=== PATIENT | female | born 1985 | race Caucasian/White ===

== ENCOUNTER 2017-09-06 00:41 | Emergency (ER) | payer BC, OTHER ==
[2017-09-06] MEDS ORDERED: Ondansetron 4 MG/2 ML SDV IVPUSH ONE (00:58)
[2017-09-06] MEDS ORDERED: Sodium Chloride 0.9% 1,000 ML IV ONE (00:58)
[2017-09-06] MEDS ORDERED: Ketorolac 30 MG/ML SDV IVPUSH ONE (00:58)
--- NOTE | 2017-09-06 00:59 | EDM.PDOC ---
ED HPI GENERAL MEDICAL PROBLEM - General Chief Complaint: Genitourinary Problem Stated Complaint: KIDNEY INFECTION Time Seen by Provider: 09/06/17 00:58 Source of Information: Reports: Patient - History of Present Illness INITIAL COMMENTS - FREE TEXT/NARRATIVE: HISTORY AND PHYSICAL: History of present illness: []Patient presents with dysuria and left flank pain she rates 4 out of 10 nonradiating, she has had some subjective fever no chills sweats no chest pain shortness of breath headache dizziness or palpitation no bowel symptoms Generally healthy just completing clindamycin for a dental procedure Review of systems: As per history of present illness and below otherwise all systems reviewed and negative. Past medical history: As per history of present illness and as reviewed below otherwise noncontributory. Surgical history: As per history of present illness and as reviewed below otherwise noncontributory. Social history: No reported history of drug or alcohol abuse. Family history: As per history of present illness and as reviewed below otherwise noncontributory. Physical exam: HEENT: Atraumatic, normocephalic, pupils reactive, negative for conjunctival pallor or scleral icterus, mucous membranes moist, throat clear, neck supple, nontender, trachea midline. Lungs: Clear to auscultation, breath sounds equal bilaterally, chest nontender. Heart: S1S2, regular, negative for clicks, rubs, or JVD. Abdomen: Soft, nondistended, nontender. Negative for masses or hepatosplenomegaly. Negative for costovertebral tenderness on the right she does have a little left flank pain on kidney punch. Pelvis: Stable nontender. Genitourinary: Deferred. Rectal: Deferred. Extremities: Atraumatic, negative for cords or calf pain. Neurovascular unremarkable. Neuro: Awake, alert, oriented. Cranial nerves II through XII unremarkable. Cerebellum unremarkable. Motor and sensory unremarkable throughout. Exam nonfocal. Diagnostics: []CBC CMP UA hCG CT abdomen/pelvis w contrast Therapeutics: []1 L normal saline bolus Zofran 8 mg IV Toradol 30 mg IV Levaquin 500 mg by mouth daily #10 no refill first dose provided Zofran 8 mg by mouth every 8 when necessary #30 no refill Toradol 10 mg by mouth 3 times a day when necessary #15 no refill Return if symptoms persist worsen or fever nausea vomiting chills sweats or intractable pain despite antibiotics Impression: []Dysuria Flank pain improved/resolved with Toradol Clinical left pyelonephritis Definitive disposition and diagnosis as appropriate pending reevaluation and review of above. - Related Data Allergies Allergy/AdvReac Type Severity Reaction Status Date / Time Sulfa (Sulfonamide Allergy Airway Verified 09/06/17 00:52 Antibiotics) Tightness paroxetine HCl [From Paxil] AdvReac Anxiety Verified 09/06/17 00:52 Home Meds: Home Meds . [No Known Home Meds] 09/06/17 [History] Past Medical History Psychiatric History: Reports: Anxiety, Panic Attack - Infectious Disease History Infectious Disease History: Reports: Chicken Pox - Past Surgical History GI Surgical History: Reports: Appendectomy, Cholecystectomy Social & Family History - Family History Family Medical History: Noncontributory - Tobacco Use Smoking Status *Q: Never Smoker Years of Tobacco use: 1 Used Tobacco, but Quit: Yes Month Tobacco Last Used: yes Second Hand Smoke Exposure: Yes - Caffeine Use Caffeine Use: Reports: Coffee - Alcohol Use Days Per Week of Alcohol Use: 0 - Recreational Drug Use Recreational Drug Use: No ED ROS GENERAL - Review of Systems Review Of Systems: ROS reveals no pertinent complaints other than HPI. ED EXAM, GENERAL - Physical Exam Exam: See Below Course - Vital Signs Last Recorded V/S: Last Vital Signs Temp 37.3 C 09/06/17 01:42 Pulse 100 09/06/17 02:14 Resp 17 09/06/17 02:14 BP 115/68 09/06/17 02:14 Pulse Ox 98 09/06/17 02:14 - Orders/Labs/Meds Orders: Active Orders 24 hr Category Date Time Status CULTURE BLOOD [BC] Stat Lab 09/06/17 01:20 Received CULTURE BLOOD [BC] Stat Lab 09/06/17 02:10 Received CULTURE URINE [RM] Stat Lab 09/06/17 01:05 Received Blood Culture x2 Reflex Set [OM.PC] Stat Oth 09/06/17 01:14 Ordered Labs: Laboratory Tests 09/06/17 09/06/17 09/06/17 Range/Units 01:05 01:05 01:05 WBC 14.62 H (4.0-11.0) K/uL RBC 4.50 (4.30-5.90) M/uL Hgb 13.8 (12.0-16.0) g/dL Hct 40.9 (36.0-46.0) % MCV 90.9 (80.0-98.0) fL MCH 30.7 (27.0-32.0) pg MCHC 33.7 (31.0-37.0) g/dL RDW Std Deviation 39.3 (28.0-62.0) fl RDW Coeff of Eliud 12 (11.0-15.0) % Plt Count 257 (150-400) K/uL MPV 9.60 (7.40-12.00) fL Neut % (Auto) 79.4 (48.0-80.0) % Lymph % (Auto) 11.5 L (16.0-40.0) % [place] % (Auto) 8.1 (0.0-15.0) % Eos % (Auto) 0.9 (0.0-7.0) % Baso % (Auto) 0.1 (0.0-1.5) % Neut # (Auto) 11.6 H (1.4-5.7) K/uL Lymph # (Auto) 1.7 (0.6-2.4) K/uL [place] # (Auto) 1.2 H (0.0-0.8) K/uL Eos # (Auto) 0.1 (0.0-0.7) K/uL Baso # (Auto) 0.0 (0.0-0.1) K/uL Sodium (136-146) mmol/L Potassium (3.5-5.1) mmol/L Chloride (98-110) mmol/L Carbon Dioxide (21-31) mmol/L BUN (6.0-23.0) mg/dL Creatinine (0.6-1.5) mg/dL Est Cr Clr Drug Dosing mL/min Estimated GFR (MDRD) ml/min Glucose (60-110) mg/dL Calcium (8.8-10.8) mg/dL Total Bilirubin (0.1-1.5) mg/dL AST (5-40) IU/L ALT (8-54) IU/L Alkaline Phosphatase (40-150) Total Protein (6.0-8.0) g/dL Albumin (3.5-5.0) g/dL Globulin (2.0-3.5) g/dL Albumin/Globulin Ratio (1.3-2.8) Urine Color YELLOW Urine Appearance HAZY Urine pH 5.5 (5.0-8.0) Ur Specific [place] 1.010 (1.001-1.035) Urine Protein NEGATIVE (NEGATIVE) mg/dL Urine Glucose (UA) NEGATIVE (NEGATIVE) mg/dL Urine Ketones NEGATIVE (NEGATIVE) mg/dL Urine Occult Blood LARGE H (NEGATIVE) Urine Nitrite NEGATIVE (NEGATIVE) Urine Bilirubin NEGATIVE (NEGATIVE) Urine Urobilinogen 0.2 (<2.0) EU/dL Ur Leukocyte Esterase SMALL (NEGATIVE) Urine RBC 8-10 (0-2/HPF) Urine WBC 8-10 (0-5/HPF) Ur Epithelial Cells FEW (NONE-FEW) Urine Bacteria FEW (NEGATIVE) Urine HCG, Qual NEGATIVE (NEGATIVE) 09/06/17 Range/Units 01:05 WBC (4.0-11.0) K/uL RBC (4.30-5.90) M/uL Hgb (12.0-16.0) g/dL Hct (36.0-46.0) % MCV (80.0-98.0) fL MCH (27.0-32.0) pg MCHC (31.0-37.0) g/dL RDW Std Deviation (28.0-62.0) fl RDW Coeff of Eliud (11.0-15.0) % Plt Count (150-400) K/uL MPV (7.40-12.00) fL Neut % (Auto) (48.0-80.0) % Lymph % (Auto) (16.0-40.0) % [place] % (Auto) (0.0-15.0) % Eos % (Auto) (0.0-7.0) % Baso % (Auto) (0.0-1.5) % Neut # (Auto) (1.4-5.7) K/uL Lymph # (Auto) (0.6-2.4) K/uL [place] # (Auto) (0.0-0.8) K/uL Eos # (Auto) (0.0-0.7) K/uL Baso # (Auto) (0.0-0.1) K/uL Sodium 140 (136-146) mmol/L Potassium 3.6 (3.5-5.1) mmol/L Chloride 106 (98-110) mmol/L Carbon Dioxide 23 (21-31) mmol/L BUN 10 (6.0-23.0) mg/dL Creatinine 0.8 (0.6-1.5) mg/dL Est Cr Clr Drug Dosing 105.59 mL/min Estimated GFR (MDRD) > 60.0 ml/min Glucose 97 (60-110) mg/dL Calcium 9.3 (8.8-10.8) mg/dL Total Bilirubin 0.4 (0.1-1.5) mg/dL AST 19 (5-40) IU/L ALT 26 (8-54) IU/L Alkaline Phosphatase 79 (40-150) Total Protein 7.5 (6.0-8.0) g/dL Albumin 4.1 (3.5-5.0) g/dL Globulin 3.4 (2.0-3.5) g/dL Albumin/Globulin Ratio 1.2 L (1.3-2.8) Urine Color Urine Appearance Urine pH (5.0-8.0) Ur Specific [place] (1.001-1.035) Urine Protein (NEGATIVE) mg/dL Urine Glucose (UA) (NEGATIVE) mg/dL Urine Ketones (NEGATIVE) mg/dL Urine Occult Blood (NEGATIVE) Urine Nitrite (NEGATIVE) Urine Bilirubin (NEGATIVE) Urine Urobilinogen (<2.0) EU/dL Ur Leukocyte Esterase (NEGATIVE) Urine RBC (0-2/HPF) Urine WBC (0-5/HPF) Ur Epithelial Cells (NONE-FEW) Urine Bacteria (NEGATIVE) Urine HCG, Qual (NEGATIVE) Meds: Medications Discontinued Medications Generic Name Dose Route Start Last Admin Trade Name Freq PRN Reason Stop Dose Admin Sodium Chloride 1,000 mls @ 999 mls/hr 09/06/17 00:58 09/06/17 01:10 Normal Saline IV 09/06/17 01:58 999 mls/hr STAT ONE Administration Ketorolac Tromethamine 30 mg 09/06/17 00:58 09/06/17 01:23 Toradol IVPUSH 09/06/17 00:59 30 mg ONETIME ONE Administration Levofloxacin 500 mg 09/06/17 01:40 09/06/17 02:11 Levaquin PO 09/06/17 01:41 500 mg ONETIME ONE Administration Ondansetron HCl 8 mg 09/06/17 00:58 09/06/17 01:11 Zofran IVPUSH 09/06/17 00:59 8 mg ONETIME ONE Administration Departure - Departure Time of Disposition: 02:26 Disposition: Home, Self-Care 01 Condition: Good Clinical Impression: Pyelonephritis - Discharge Information Referrals: PCP,None [Primary Care Provider] - Forms: ED Department Discharge Additional Instructions: Medication as prescribed Return to ER if symptoms persist or worsen or fever nausea vomiting chills sweats or intractable pain despite antibiotics ER referral for follow-up with primary care physician on Saturday for cheryl [facility] [address] [place] [id number] The following information is given to patients seen in the emergency department who are being discharged to home. This information is to outline your options for follow-up care. We provide all patients seen in our emergency department with a follow-up referral. The need for follow-up, as well as the timing and circumstances, are variable depending upon the specifics of your emergency department visit. If you don't have a primary care physician on staff, we will provide you with a referral. We always advise you to contact your personal physician following an emergency department visit to inform them of the circumstance of the visit and for follow-up with them and/or the need for any referrals to a consulting specialist. The emergency department will also refer you to a specialist when appropriate. This referral assures that you have the opportunity for follow-up care with a specialist. All of these measure are taken in an effort to provide you with optimal care, which includes your follow-up. Under all circumstances we always encourage you to contact your private physician who remains a resource for coordinating your care. When calling for follow-up care, please make the office aware that this follow-up is from your recent emergency room visit. If for any reason you are refused follow-up, please contact the [facility] emergency department at and asked to speak to the emergency department charge nurse. - My Orders Last 24 Hours: My Active Orders 09/06/17 01:05 CULTURE URINE [RM] Stat 09/06/17 01:14 Blood Culture x2 Reflex Set [OM.PC] Stat 09/06/17 01:20 CULTURE BLOOD [BC] Stat 09/06/17 02:10 CULTURE BLOOD [BC] Stat - Assessment/Plan Last 24 Hours: My Active Orders 09/06/17 01:05 CULTURE URINE [RM] Stat 09/06/17 01:14 Blood Culture x2 Reflex Set [OM.PC] Stat 09/06/17 01:20 CULTURE BLOOD [BC] Stat 09/06/17 02:10 CULTURE BLOOD [BC] Stat
[2017-09-06] MEDS ORDERED: Levofloxacin 500 MG Tab PO ONE (01:40)
[2017-09-06 01:46] LABS: CHLORIDE,CL 106 mmol/L (98-110); SODIUM,NA 140 mmol/L (136-146)
[2017-09-06 02:15] VITALS: BP 115/68
== END 2017-09-06 02:42 | disposition home or self-care (01) ==
LOC: MW.ED 00:41
DX: N12 Tubulo-interstitial nephritis, not specified as acute or chronic (principal); Z88.2 Allergy status to sulfonamides; Z90.49 Acquired absence of other specified parts of digestive tract
CPT/HCPCS: 36415; 80053; 81001; 81025; 85025; 87040; 87086; 96361; 96374; 96375; 99284; A9270; J1885; J2405; J7040; 87088; 87186; 99283

== ENCOUNTER 2017-09-06 23:38 | Observation (INO) | payer BC ==
[2017-09-06] MEDS ORDERED: Piperacillin/Tazobactam 3.375 GM in Sodium Chloride 0.9% 50 ML IV ONE (23:41)
--- NOTE | 2017-09-06 23:44 | EDM.PDOC ---
ED HPI GENERAL MEDICAL PROBLEM - General Chief Complaint: Genitourinary Problem Stated Complaint: KIDNEY INFECTION Time Seen by Provider: 09/06/17 23:41 Source of Information: Reports: Patient - History of Present Illness INITIAL COMMENTS - FREE TEXT/NARRATIVE: HISTORY AND PHYSICAL: History of present illness: []Patient was seen yesterday with clinical pyelonephritis blood cultures have returned with bacteria and the cultures patient was feeling ill tonight fever chills sweats general malaise this is improved somewhat however was recommended that she return to emergency room for consideration of Admission until clinically well Review of systems: As per history of present illness and below otherwise all systems reviewed and negative. Past medical history: As per history of present illness and as reviewed below otherwise noncontributory. Surgical history: As per history of present illness and as reviewed below otherwise noncontributory. Social history: No reported history of drug or alcohol abuse. Family history: As per history of present illness and as reviewed below otherwise noncontributory. Physical exam: HEENT: Atraumatic, normocephalic, pupils reactive, negative for conjunctival pallor or scleral icterus, mucous membranes moist, throat clear, neck supple, nontender, trachea midline. Lungs: Clear to auscultation, breath sounds equal bilaterally, chest nontender. Heart: S1S2, regular, negative for clicks, rubs, or JVD. Abdomen: Soft, nondistended, nontender. Negative for masses or hepatosplenomegaly. Negative for costovertebral tenderness. Pelvis: Stable nontender. Genitourinary: Deferred. Rectal: Deferred. Extremities: Atraumatic, negative for cords or calf pain. Neurovascular unremarkable. Neuro: Awake, alert, oriented. Cranial nerves II through XII unremarkable. Cerebellum unremarkable. Motor and sensory unremarkable throughout. Exam nonfocal. Diagnostics: []CBC, CMP, UA Therapeutics: []Normal saline 1 25 mL per hour Zosyn 3.375 g IV Patient is on day 2 of 10 Levaquin 500 mg by mouth daily Impression: []Bacteremia/sepsis Pyelonephritis Definitive disposition and diagnosis as appropriate pending reevaluation and review of above. - Related Data Allergies Allergy/AdvReac Type Severity Reaction Status Date / Time Sulfa (Sulfonamide Allergy Airway Verified 09/06/17 00:52 Antibiotics) Tightness paroxetine HCl [From Paxil] AdvReac Anxiety Verified 09/06/17 00:52 Home Meds: Home Meds . [No Known Home Meds] 09/06/17 [History] Past Medical History Psychiatric History: Reports: Anxiety, Panic Attack - Infectious Disease History Infectious Disease History: Reports: Chicken Pox - Past Surgical History GI Surgical History: Reports: Appendectomy, Cholecystectomy Social & Family History - Family History Family Medical History: Noncontributory - Tobacco Use Smoking Status *Q: Never Smoker Years of Tobacco use: 1 Used Tobacco, but Quit: Yes Month Tobacco Last Used: yes Second Hand Smoke Exposure: Yes - Caffeine Use Caffeine Use: Reports: Coffee - Alcohol Use Days Per Week of Alcohol Use: 0 - Recreational Drug Use Recreational Drug Use: No ED ROS GENERAL - Review of Systems Review Of Systems: ROS reveals no pertinent complaints other than HPI. ED EXAM, GENERAL - Physical Exam Exam: See Below Course - Vital Signs Last Recorded V/S: Last Vital Signs Temp 36.7 C 09/07/17 00:48 Pulse 76 09/07/17 00:48 Resp 16 09/07/17 00:48 BP 103/56 L 09/07/17 00:48 Pulse Ox 99 09/07/17 00:48 - Orders/Labs/Meds Orders: Active Orders 24 hr Category Date Time Status Sodium Chloride 0.9% [Normal Saline] 1,000 ml Med 09/06/17 23:45 Active IV STAT Medication Orders Sodium Chloride (Normal Saline) 1,000 mls @ 125 mls/hr IV STAT SOFIA Last Admin: 09/07/17 00:11 Dose: 125 mls/hr Labs: Laboratory Tests 09/06/17 09/07/17 09/07/17 Range/Units 23:55 00:00 00:00 WBC 9.90 (4.0-11.0) K/uL RBC 4.41 (4.30-5.90) M/uL Hgb 13.4 (12.0-16.0) g/dL Hct 40.1 (36.0-46.0) % MCV 90.9 (80.0-98.0) fL MCH 30.4 (27.0-32.0) pg MCHC 33.4 (31.0-37.0) g/dL RDW Std Deviation 42.5 (28.0-62.0) fl RDW Coeff of Eliud 13 (11.0-15.0) % Plt Count 220 (150-400) K/uL MPV 9.40 (7.40-12.00) fL Neut % (Auto) 69.0 (48.0-80.0) % Lymph % (Auto) 21.8 (16.0-40.0) % [place] % (Auto) 8.4 (0.0-15.0) % Eos % (Auto) 0.6 (0.0-7.0) % Baso % (Auto) 0.2 (0.0-1.5) % Neut # (Auto) 6.8 H (1.4-5.7) K/uL Lymph # (Auto) 2.2 (0.6-2.4) K/uL [place] # (Auto) 0.8 (0.0-0.8) K/uL Eos # (Auto) 0.1 (0.0-0.7) K/uL Baso # (Auto) 0.0 (0.0-0.1) K/uL Nucleated RBC % 0.0 /100WBC Nucleated RBCs # 0 K/uL Sodium 139 (136-146) mmol/L Potassium 3.7 (3.5-5.1) mmol/L Chloride 107 (98-110) mmol/L Carbon Dioxide 23 (21-31) mmol/L BUN 7 (6.0-23.0) mg/dL Creatinine 0.8 (0.6-1.5) mg/dL Est Cr Clr Drug Dosing 105.60 mL/min Estimated GFR (MDRD) > 60.0 ml/min Glucose 96 (60-110) mg/dL Calcium 9.4 (8.8-10.8) mg/dL Total Bilirubin 0.4 (0.1-1.5) mg/dL AST 17 (5-40) IU/L ALT 21 (8-54) IU/L Alkaline Phosphatase 75 (40-150) Total Protein 7.2 (6.0-8.0) g/dL Albumin 3.8 (3.5-5.0) g/dL Globulin 3.4 (2.0-3.5) g/dL Albumin/Globulin Ratio 1.1 L (1.3-2.8) Urine Color YELLOW Urine Appearance CLEAR Urine pH 5.5 (5.0-8.0) Ur Specific [place] >= 1.030 (1.001-1.035) Urine Protein NEGATIVE (NEGATIVE) mg/dL Urine Glucose (UA) NEGATIVE (NEGATIVE) mg/dL Urine Ketones NEGATIVE (NEGATIVE) mg/dL Urine Occult Blood NEGATIVE (NEGATIVE) Urine Nitrite NEGATIVE (NEGATIVE) Urine Bilirubin NEGATIVE (NEGATIVE) Urine Urobilinogen 0.2 (<2.0) EU/dL Ur Leukocyte Esterase NEGATIVE (NEGATIVE) Urine RBC 2-4 (0-2/HPF) Urine WBC 8-12 (0-5/HPF) Ur Epithelial Cells FEW (NONE-FEW) Urine Bacteria FEW (NEGATIVE) Urine Mucus MODERATE (NONE-MOD) Meds: Medications Generic Name Dose Route Start Last Admin Trade Name Freq PRN Reason Stop Dose Admin Sodium Chloride 1,000 mls @ 125 mls/hr 09/06/17 23:45 09/07/17 00:11 Normal Saline IV 125 mls/hr STAT SOFIA Administration Discontinued Medications Generic Name Dose Route Start Last Admin Trade Name Freq PRN Reason Stop Dose Admin Piperacillin Sod/Tazobactam 50 mls @ 100 mls/hr 09/06/17 23:41 09/07/17 00:11 Sod 3.375 gm/ Sodium Chloride IV 09/07/17 00:10 100 mls/hr ONETIME ONE Administration Departure - Departure Time of Disposition: 01:10 Disposition: Refer to Observation Condition: Fair Clinical Impression: Pyelonephritis - Discharge Information Forms: ED Department Discharge - My Orders Last 24 Hours: My Active Orders 09/06/17 23:45 Sodium Chloride 0.9% [Normal Saline] 1,000 ml IV STAT - Assessment/Plan Last 24 Hours: My Active Orders 09/06/17 23:45 Sodium Chloride 0.9% [Normal Saline] 1,000 ml IV STAT
[2017-09-06] MEDS ORDERED: Sodium Chloride 0.9% 1,000 ML IV SCH (23:45)
[2017-09-07 00:40] LABS: CHLORIDE,CL 107 mmol/L (98-110); SODIUM,NA 139 mmol/L (136-146)
[2017-09-07] MEDS ORDERED: HYDROmorphone 2 MG/ML Syringe IVPUSH PRN (01:52)
[2017-09-07] MEDS: Ondansetron 4 MG/2 ML SDV IVPUSH PRN ×3 (04:35→20:53)
[2017-09-07] MEDS: Acetaminophen 325 MG Tab PO PRN ×2 (04:35→14:48)
[2017-09-07] MEDS: Piperacillin/Tazobactam 4.5 GM in Sodium Chloride 0.9% 100 ML IV SCH ×2 (07:12→15:53)
[2017-09-07] MEDS: Acetaminophen/oxyCODONE 325-5 MG Tab PO PRN ×4 (08:35→22:44)
[2017-09-07] MEDS: Sodium Chloride 0.9% 1,000 ML IV SCH ×2 (08:53→20:59)
--- NOTE | 2017-09-07 09:22 | PCM.HP ---
H&P History of Present Illness - General Date of Service: 09/07/17 Admit Problem/Dx: Admission Diagnosis/Problem Admission Diagnosis/Problem Pyelonephritis Source of Information: Patient History Limitations: Reports: No Limitations - History of Present Illness Initial Comments - Free Text/Narative: 32 yo fm admitted for Acute Pyelonephritis. For the past 1.5 weeks she has been experiencing pain in her left flank and burning with urination. The urine did have blood in it but was doris colored. For past 2-3 days she developed fever and chills and has been shivering. She presented to the ED 2 nights ago and was told she had a UTI and was discharged from ED with antibiotics. Her symptoms worsened then this past night she received a call from the ED informing her that she may have bacteria in her blood and should return to ED. She has some appetite loss but is tolerating liquids. She denies any vaginal bleeding or discharge. She is from [place] and moved to [place] recently. She had cholecystectomy in 2010 and appendectomy when she was 14 years old. She states she felt somewhat better until she got Dilaudid which caused her to have a headache. She is requesting alternate pain medication. She has no other pmh and does not take any medications. Lower Back Pain Score (Numeric/FACES): 4 - Related Data Allergies/Adverse Reactions: Allergies Allergy/AdvReac Type Severity Reaction Status Date / Time Sulfa (Sulfonamide Allergy Airway Verified 09/06/17 00:52 Antibiotics) Tightness paroxetine HCl [From Paxil] AdvReac Anxiety Verified 09/06/17 00:52 Home Medications: Home Meds . [No Known Home Meds] 09/06/17 [History] Past Medical History Psychiatric History: Reports: Anxiety, Panic Attack - Infectious Disease History Infectious Disease History: Reports: Chicken Pox - Past Surgical History GI Surgical History: Reports: Appendectomy, Cholecystectomy Social & Family History - Family History Family Medical History: Noncontributory - Tobacco Use Smoking Status *Q: Never Smoker Years of Tobacco use: 1 Used Tobacco, but Quit: Yes Month Tobacco Last Used: yes Second Hand Smoke Exposure: No - Caffeine Use Caffeine Use: Reports: Coffee - Alcohol Use Days Per Week of Alcohol Use: 1 Number of Drinks Per Day: 2 Total Drinks Per Week: 2 - Recreational Drug Use Recreational Drug Use: No H&P Review of Systems - Review of Systems: Review Of Systems: See Below General: Reports: Fever, Chills, Malaise, Weakness, Fatigue, Night Sweats, Decreased Appetite HEENT: Reports: No Symptoms Pulmonary: Reports: No Symptoms Cardiovascular: Reports: No Symptoms Gastrointestinal: Reports: Nausea, Vomiting Genitourinary: Reports: Dysuria, Burning, Flank Pain (left) Musculoskeletal: Reports: No Symptoms Skin: Reports: No Symptoms Psychiatric: Reports: No Symptoms Neurological: Reports: No Symptoms Hematologic/Lymphatic: Reports: No Symptoms Immunologic: Reports: No Symptoms Exam - Exam Exam: See Below - Vital Signs Vital Signs: Last Vital Signs Temp 36.6 C 09/07/17 08:00 Pulse 80 09/07/17 08:00 Resp 20 09/07/17 08:00 BP 105/60 09/07/17 08:00 Pulse Ox 96 09/07/17 08:00 Weight: 79.651 kg - Exam General: Alert, Oriented, Mild Distress, Moderate Distress HEENT: Conjunctiva Clear, Mucosa Moist & Peculiar, Nares Patent, Normal Nasal Septum , Posterior Pharynx Clear, Pupils Reactive Neck: Supple, Trachea Midline Lungs: Clear to Auscultation, Normal Respiratory Effort Cardiovascular: Regular Rate, Regular Rhythm GI/Abdominal Exam: Normal Bowel Sounds, Soft, No Distention, Tender (left flank tenderness ). No: Guarding, Rebound Back Exam: CVA Tenderness (L) Extremities: Normal Inspection, No Pedal Edema, Normal Capillary Refill Peripheral Pulses: 2+: Radial (L), Radial (R) Skin: Warm, Dry, Intact Neurological: Cranial Nerves Intact, Reflexes Equal Bilateral Neuro Extensive - Mental Status: Alert, Oriented x3 - Patient Data Result Diagrams: 09/07/17 00:00 09/07/17 00:00 *Q Meaningful Use (ADM) - VTE *Q VTE Criteria *Q: - Stroke *Q Stroke Criteria *Q: - AMI *Q AMI Criteria *Q: Problem List Initiated/Reviewed/Updated: Yes Orders Last 24hrs: Active Orders 24 hr Category Date Time Status Patient Status [ADT] Routine ADT 09/07/17 01:11 Active Regular Diet [DIET] Diet 09/07/17 Breakfast Active CULTURE URINE [RM] Routine Lab 09/07/17 07:26 Received Acetaminophen [Tylenol] Med 09/07/17 01:52 Active 650 mg PO Q6H PRN Acetaminophen/oxyCODONE [Percocet 325-5 MG] Med 09/07/17 08:25 Active 1 tab PO Q4H PRN Ondansetron [Zofran] Med 09/07/17 01:52 Active 4 mg IVPUSH Q4H PRN Piperacillin/Tazobactam [Piperacil-Tazobact] 4.5 gm Med 09/07/17 08:00 Active Sodium Chloride 0.9% [Normal Saline] 100 ml IV Q8H Sodium Chloride 0.9% [Normal Saline] 1,000 ml Med 09/07/17 02:00 Active IV ASDIRECTED Medication Orders Acetaminophen (Tylenol) 650 mg PO Q6H PRN PRN Reason: Pain (mild 1-3) Last Admin: 09/07/17 04:35 Dose: 650 mg Piperacillin Sod/Tazobactam (Sod 4.5 gm/ Sodium Chloride) 100 mls @ 100 mls/hr IV Q8H REPLACED BY [facility] Last Admin: 09/07/17 07:12 Dose: 100 mls/hr Sodium Chloride (Normal Saline) 1,000 mls @ 100 mls/hr IV ASDIRECTED SOFIA Last Admin: 09/07/17 08:53 Dose: 100 mls/hr Ondansetron HCl (Zofran) 4 mg IVPUSH Q4H PRN PRN Reason: Nausea/Vomiting Last Admin: 09/07/17 08:36 Dose: 4 mg Admin: 09/07/17 04:35 Dose: 4 mg Oxycodone/Acetaminophen (Percocet 325-5 Mg) 1 tab PO Q4H PRN PRN Reason: Pain Last Admin: 09/07/17 08:35 Dose: 1 tab Assessment/Plan Comment:: 32 year old female with no pmh admitted for Pyelonephritis. UC positive for gram negative rods. BC no growth on day 1. Plan: 1. admit to inpatient 2. IV NS at 150 ml/hour 3. start Zosyn IV 4. Zofran 4 mg q4hour PRN for N/V 5. Urine HCG 6. CT abdomen/pelvis with contrast 7. f/u urine culture sensitivities and blood culture 8. DVT Prophylaxis: Lovenox
[2017-09-07] MEDS ORDERED: Promethazine 25 MG/ML SDV IM PRN (09:28)
[2017-09-07] MEDS ORDERED: Iopamidol 755 Mg/ML 100 ML Bottle IVPUSH STA (11:51)
[2017-09-07] MEDS ORDERED: Polyethylene Glycol 3350 Powder 17 GM Packet PO PRN (12:12)
[2017-09-08] MEDS: Piperacillin/Tazobactam 4.5 GM in Sodium Chloride 0.9% 100 ML IV SCH ×4 (00:21→16:41)
[2017-09-08] MEDS: Acetaminophen 325 MG Tab PO PRN (00:30)
[2017-09-08 07:07] LABS: CHLORIDE,CL 109 mmol/L (98-110); SODIUM,NA 141 mmol/L (136-146)
[2017-09-08] MEDS: Sodium Chloride 0.9% 1,000 ML IV SCH (07:56)
[2017-09-08] MEDS: Acetaminophen/oxyCODONE 325-5 MG Tab PO PRN ×2 (08:06→16:37)
[2017-09-08] MEDS: Ondansetron 4 MG/2 ML SDV IVPUSH PRN ×2 (08:07→12:42)
--- NOTE | 2017-09-08 08:51 | PCM.PN ---
<Baluch,Phill - Last Filed: 09/08/17 09:33> - General Info Date of Service: 09/08/17 Admission Dx/Problem (Free Text): Admission Diagnosis/Problem Admission Diagnosis/Problem Pyelonephritis Subjective Update: Patient still experiencing night sweats and intermittent chills, flank pain, burning and nausea. Her appetite is still poor. She is ambulating. No hematuria. Functional Status: Reports: Ambulating, Urinating. Denies: Pain Controlled, Tolerating Diet - Review of Systems General: Reports: Malaise, Chills, Night Sweats. Denies: Appetite HEENT: Reports: No Symptoms Pulmonary: Reports: No Symptoms Cardiovascular: Reports: No Symptoms Gastrointestinal: Reports: Nausea Genitourinary: Reports: Burning, Flank Pain Musculoskeletal: Reports: No Symptoms Skin: Reports: No Symptoms Neurological: Reports: No Symptoms Psychiatric: Reports: No Symptoms - Patient Data Vitals - Most Recent: Last Vital Signs Temp 36.6 C 09/08/17 08:00 Pulse 73 09/08/17 08:00 Resp 20 09/08/17 08:00 BP 111/62 09/08/17 08:00 Pulse Ox 99 09/08/17 08:00 Weight - Most Recent: 79.651 kg I&O - Last 24 Hours: Intake & Output 09/07/17 09/08/17 09/08/17 22:59 06:59 14:59 Intake Total 2006 2069 Output Total 600 1250 Balance 1407 820 Lab Results Last 24 Hours: Laboratory Results - last 24 hr 09/07/17 09/08/17 09/08/17 Range/Units 07:25 06:34 06:34 WBC 8.89 (4.0-11.0) K/uL RBC 3.88 L (4.30-5.90) M/uL Hgb 11.7 L (12.0-16.0) g/dL Hct 35.6 L (36.0-46.0) % MCV 91.8 (80.0-98.0) fL MCH 30.2 (27.0-32.0) pg MCHC 32.9 (31.0-37.0) g/dL RDW Std Deviation 43.4 (28.0-62.0) fl RDW Coeff of Eliud 13 (11.0-15.0) % Plt Count 186 (150-400) K/uL MPV 9.40 (7.40-12.00) fL Neut % (Auto) 64.5 (48.0-80.0) % Lymph % (Auto) 25.5 (16.0-40.0) % [place] % (Auto) 8.8 (0.0-15.0) % Eos % (Auto) 1.0 (0.0-7.0) % Baso % (Auto) 0.2 (0.0-1.5) % Neut # (Auto) 5.7 (1.4-5.7) K/uL Lymph # (Auto) 2.3 (0.6-2.4) K/uL [place] # (Auto) 0.8 (0.0-0.8) K/uL Eos # (Auto) 0.1 (0.0-0.7) K/uL Baso # (Auto) 0.0 (0.0-0.1) K/uL Nucleated RBC % 0.0 /100WBC Nucleated RBCs # 0 K/uL Sodium 141 (136-146) mmol/L Potassium 3.6 (3.5-5.1) mmol/L Chloride 109 (98-110) mmol/L Carbon Dioxide 23 (21-31) mmol/L BUN 5 L (6.0-23.0) mg/dL Creatinine 0.7 (0.6-1.5) mg/dL Est Cr Clr Drug Dosing 118.54 mL/min Estimated GFR (MDRD) > 60.0 ml/min Glucose 82 (60-110) mg/dL Calcium 8.4 L (8.8-10.8) mg/dL Urine HCG, Qual NEGATIVE (NEGATIVE) Med Orders - Current: Current Medications Acetaminophen (Tylenol) 650 mg PO Q6H PRN PRN Reason: Pain (mild 1-3) Last Admin: 09/08/17 00:30 Dose: 650 mg Piperacillin Sod/Tazobactam (Sod 4.5 gm/ Sodium Chloride) 100 mls @ 100 mls/hr IV Q8H [facility] Last Admin: 09/08/17 07:58 Dose: 100 mls/hr Sodium Chloride (Normal Saline) 1,000 mls @ 100 mls/hr IV ASDIRECTED [facility] Last Admin: 09/08/17 07:56 Dose: 100 mls/hr Ondansetron HCl (Zofran) 4 mg IVPUSH Q4H PRN PRN Reason: Nausea/Vomiting Last Admin: 09/08/17 08:07 Dose: 4 mg Oxycodone/Acetaminophen (Percocet 325-5 Mg) 1 tab PO Q4H PRN PRN Reason: Pain Last Admin: 09/08/17 08:06 Dose: 1 tab Polyethylene Glycol (Miralax) 17 gm PO DAILY PRN PRN Reason: Constipation Last Admin: 09/07/17 12:35 Dose: 17 gm Promethazine HCl (Phenergan) 25 mg IM Q8H PRN PRN Reason: Nausea/Vomiting Discontinued Medications Hydromorphone HCl (Dilaudid) 1 mg IVPUSH Q2H PRN PRN Reason: Pain (severe 7-10) Last Admin: 09/07/17 02:12 Dose: 1 mg Piperacillin Sod/Tazobactam (Sod 3.375 gm/ Sodium Chloride) 50 mls @ 100 mls/ hr IV ONETIME ONE Stop: 09/07/17 00:10 Last Admin: 09/07/17 00:11 Dose: 100 mls/hr Sodium Chloride (Normal Saline) 1,000 mls @ 125 mls/hr IV STAT [facility] Last Admin: 09/07/17 00:11 Dose: 125 mls/hr Iopamidol (Isovue-370 (76%)) 100 ml IVPUSH ONETIME STA Stop: 09/07/17 11:52 Last Admin: 09/07/17 11:51 Dose: 100 ml - Exam General: Alert, Oriented Neck: Supple Lungs: Clear to Auscultation, Normal Respiratory Effort Cardiovascular: Regular Rate, Regular Rhythm GI/Abdominal Exam: Tender Back Exam: CVA Tenderness (L) Extremities: Normal Inspection, Normal Capillary Refill Peripheral Pulses: 2+: Dorsalis Pedis (L), Dorsalis Pedis (R) Skin: Warm, Dry, Intact Neurological: No New Focal Deficit Psy/Mental Status: Alert, Normal Affect, Normal Mood - Problem List Review Problem List Initiated/Reviewed/Updated: Yes - My Orders Last 24 Hours: My Active Orders 09/07/17 08:25 Acetaminophen/oxyCODONE [Percocet 325-5 MG] 1 tab PO Q4H PRN 09/07/17 09:28 Promethazine [Phenergan] 25 mg IM Q8H PRN 09/07/17 10:48 Abdomen Pelvis w Cont [CT] Routine 09/07/17 12:12 Polyethylene Glycol 3350 [MiraLAX] 17 gm PO DAILY PRN 09/07/17 14:01 Code Status [Resuscitation Status] Routine 09/09/17 05:11 BMP [BASIC METABOLIC PANEL,BMP] [CHEM] AM CBC WITH AUTO DIFF [HEME] AM 09/10/17 05:11 BMP [BASIC METABOLIC PANEL,BMP] [CHEM] AM CBC WITH AUTO DIFF [HEME] AM 09/11/17 05:11 BMP [BASIC METABOLIC PANEL,BMP] [CHEM] AM CBC WITH AUTO DIFF [HEME] AM 09/12/17 05:11 BMP [BASIC METABOLIC PANEL,BMP] [CHEM] AM CBC WITH AUTO DIFF [HEME] AM - Plan Plan:: 32 year old female with no pmh admitted for Pyelonephritis. UC positive for gram negative rods. BC no growth as of yet. CT abdomen/pelvis consistent with Acute Pyelonephritis & Constipation. Left Pyelonephritis: minimal improvement with poor oral intake therefore continue IV Zosyn. f/u UC/BC. Nausea, secondary to Pyelonephritis: contiue Zofran 4 mg q4hour PRN. add Phenergan 25 mg [id number] prn Left Flank Pain, secondart to Pyelonephritis: continue Percocet [id number] PRN. continue tylenol PRN. Constipation: continue Miralax QD PRN DVT Prophylaxis: on Lovenox <Vladimir Thrasher - Last Filed: 09/08/17 15:55> - General Info Admission Dx/Problem (Free Text): I was present with the resident during history and examination. I discussed the case with the resident and agree with the findings and plan as documented in the residents note. - Patient Data Vitals - Most Recent: Last Vital Signs Temp 36.9 C 09/08/17 15:32 Pulse 83 09/08/17 15:32 Resp 22 H 09/08/17 15:32 BP 118/73 09/08/17 15:32 Pulse Ox 96 09/08/17 15:32 I&O - Last 24 Hours: Intake & Output 09/08/17 09/08/17 09/08/17 06:59 14:59 22:59 Intake Total 2070 700 Output Total 1250 200 Balance 820 -200 700 Lab Results Last 24 Hours: Laboratory Results - last 24 hr 09/08/17 09/08/17 Range/Units 06:34 06:34 WBC 8.89 (4.0-11.0) K/uL RBC 3.88 L (4.30-5.90) M/uL Hgb 11.7 L (12.0-16.0) g/dL Hct 35.6 L (36.0-46.0) % MCV 91.8 (80.0-98.0) fL MCH 30.2 (27.0-32.0) pg MCHC 32.9 (31.0-37.0) g/dL RDW Std Deviation 43.4 (28.0-62.0) fl RDW Coeff of Eliud 13 (11.0-15.0) % Plt Count 186 (150-400) K/uL MPV 9.40 (7.40-12.00) fL Neut % (Auto) 64.5 (48.0-80.0) % Lymph % (Auto) 25.5 (16.0-40.0) % [place] % (Auto) 8.8 (0.0-15.0) % Eos % (Auto) 1.0 (0.0-7.0) % Baso % (Auto) 0.2 (0.0-1.5) % Neut # (Auto) 5.7 (1.4-5.7) K/uL Lymph # (Auto) 2.3 (0.6-2.4) K/uL [place] # (Auto) 0.8 (0.0-0.8) K/uL Eos # (Auto) 0.1 (0.0-0.7) K/uL Baso # (Auto) 0.0 (0.0-0.1) K/uL Nucleated RBC % 0.0 /100WBC Nucleated RBCs # 0 K/uL Sodium 141 (136-146) mmol/L Potassium 3.6 (3.5-5.1) mmol/L Chloride 109 (98-110) mmol/L Carbon Dioxide 23 (21-31) mmol/L BUN 5 L (6.0-23.0) mg/dL Creatinine 0.7 (0.6-1.5) mg/dL Est Cr Clr Drug Dosing 118.54 mL/min Estimated GFR (MDRD) > 60.0 ml/min Glucose 82 (60-110) mg/dL Calcium 8.4 L (8.8-10.8) mg/dL Med Orders - Current: Current Medications Acetaminophen (Tylenol) 650 mg PO Q6H PRN PRN Reason: Pain (mild 1-3) Last Admin: 09/08/17 00:30 Dose: 650 mg Piperacillin Sod/Tazobactam (Sod 4.5 gm/ Sodium Chloride) 100 mls @ 100 mls/hr IV Q8H [facility] Last Admin: 09/08/17 15:11 Dose: 100 mls/hr Ondansetron HCl (Zofran) 4 mg IVPUSH Q4H PRN PRN Reason: Nausea/Vomiting Last Admin: 09/08/17 12:42 Dose: 4 mg Oxycodone/Acetaminophen (Percocet 325-5 Mg) 1 tab PO Q4H PRN PRN Reason: Pain Last Admin: 09/08/17 08:06 Dose: 1 tab Polyethylene Glycol (Miralax) 17 gm PO DAILY PRN PRN Reason: Constipation Last Admin: 09/07/17 12:35 Dose: 17 gm Promethazine HCl (Phenergan) 25 mg IM Q8H PRN PRN Reason: Nausea/Vomiting Discontinued Medications Hydromorphone HCl (Dilaudid) 1 mg IVPUSH Q2H PRN PRN Reason: Pain (severe 7-10) Last Admin: 09/07/17 02:12 Dose: 1 mg Piperacillin Sod/Tazobactam (Sod 3.375 gm/ Sodium Chloride) 50 mls @ 100 mls/ hr IV ONETIME ONE Stop: 09/07/17 00:10 Last Admin: 09/07/17 00:11 Dose: 100 mls/hr Sodium Chloride (Normal Saline) 1,000 mls @ 125 mls/hr IV STAT [facility] Last Admin: 09/07/17 00:11 Dose: 125 mls/hr Sodium Chloride (Normal Saline) 1,000 mls @ 100 mls/hr IV ASDIRECTED [facility] Last Admin: 09/08/17 07:56 Dose: 100 mls/hr Iopamidol (Isovue-370 (76%)) 100 ml IVPUSH ONETIME STA Stop: 09/07/17 11:52 Last Admin: 09/07/17 11:51 Dose: 100 ml
[2017-09-08 15:32] VITALS: BP 118/73
[2017-09-08] MEDS ORDERED: Ciprofloxacin 500 MG Tab PO ONE (16:59)
--- NOTE | 2017-09-09 10:15 | CT ---
EXAM DATE: 09/07/17 PATIENT'S AGE: 32 Patient: MOOSE VALERIO Facility: [place], [place] Site . Site : 1985 Study: CT Abdomen/Pelvis W CONT [id number]/7/2017 11:53:56 AM Ordering Physician: Anna Marie Gilbert Final Report: INDICATION: FLANK PAIN, KIDNEY INFECTION TECHNIQUE: Helical scans obtained through the abdomen and pelvis after administration of 100 cc of Isovue-370 intravenously. COMPARISON: None. FINDINGS: 1. Although the nephrograms appear symmetrical, there is minimal perirenal fluid on the left and the left renal pelvis appears slightly indistinct. These findings could be due to mild or early pyelonephritis. No urinary tract calculi , hydronephrosis or renal masses. The bladder appears normal. 2. Uterus and ovaries are normal size. Small amount of free fluid in the pelvis , physiologic in amount. 3. Gallbladder is surgically absent. Mild prominence of the bile ducts consistent with reservoir effect. The appendix is not identified and is presumed surgically absent. 4. There is some twisting of the small bowel mesentery in the right lower quadrant but no evidence for small bowel obstruction. Considerable stool throughout the colon. 5. Liver, spleen, pancreas and adrenals are normal. 6. Minimal scarring or atelectasis at the lung bases. Trace pleural fluid bilaterally. 7. No significant bony abnormalities. IMPRESSION: 1. Slightly indistinct soft tissue planes and trace fluid about the left kidney which could be due to mild or early pyelonephritis. Correlate clinically. 2. Small amount of free fluid in the pelvis and trace pleural fluid bilaterally. 3. No urinary tract stones or masses. 4. Constipation. Dictated by Sebastien Lindo MD @ 09/07/2017 12:17:39 PM Dictated by: Sebastien Lindo MD @ 09/07/2017 12:17:44 (Electronic Signature) Report Signed by Proxy. [facility]
== END 2017-09-08 17:30 | disposition home or self-care (01) ==
LOC: MW.ED 23:38 → MW.MS 09-07 01:11
PROVIDERS: ADMIT Internal Medicine; ATTEND Internal Medicine
DX: N10 Acute pyelonephritis (principal); Z88.2 Allergy status to sulfonamides; Z88.8 Allergy status to other drugs, medicaments and biological substances; Z90.49 Acquired absence of other specified parts of digestive tract
CPT/HCPCS: 36415; 74177; 80048; 80053; 81001; 81025; 85025; 87086; 96361; 96365; 96366; 96375; 96376; 99284; A9270; G0378; J1170; J2405; J2543; J7030; J7040; J7050; Q9967; 99283

== ENCOUNTER 2022-12-22 11:12 | Emergency (ER) | payer BC ==
[2022-12-22 11:52] VITALS: PULSE 90
[2022-12-22 12:15] VITALS: BP 116/77
== END 2022-12-22 12:06 | disposition home or self-care (01) ==
LOC: MW.ED 11:12
DX: F41.9 Anxiety disorder, unspecified (principal); Z76.0 Encounter for issue of repeat prescription; Z88.2 Allergy status to sulfonamides; Z88.8 Allergy status to other drugs, medicaments and biological substances
CPT/HCPCS: 99282; 99283

== ENCOUNTER 2024-09-29 08:25 | Day surgery (SDC) | payer BC ==
[~2024-09-29 08:25] MED LIST: Sodium Chloride 0.9% 10 ML Syringe FLUSH PRN; Sodium Chloride 0.9% 2.5 ML Syringe FLUSH PRN; Sodium Chloride 0.9% 20 ML SDV IV PRN
[2024-09-29] MEDS: Lactated Ringers 1,000 ML IV SCH (10:15)
[2024-09-29] MEDS ORDERED: propofoL 50 ML ONE ×2 (10:31→11:08)
[2024-09-29] MEDS ORDERED: Lidocaine 2% 5 ML SDV ONE (10:32)
[2024-09-29] MEDS ORDERED: fentaNYL 100 MCG/2 ML SDV ONE (10:39)
[2024-09-29] MEDS ORDERED: Ondansetron 4 MG/2 ML SDV ONE (11:10)
[2024-09-29] MEDS ORDERED: Dexamethasone 4 MG/ML 5 ML MDV ONE (11:10)
[2024-09-29] MEDS ORDERED: Pantoprazole 80 MG in Sodium Chloride 0.9% 20 ML IVPUSH ONE (11:20)
[2024-09-29] MEDS ORDERED: Famotidine 20 MG/2 ML SDV ONE (11:21)
[2024-09-29] MEDS ORDERED: Propofol 200 MG/20 ML SDV ONE ×2 (11:31→13:27)
[2024-09-29 12:31] VITALS: BP 103/56; PULSE 59
== END 2024-09-29 12:55 | disposition home or self-care (01) ==
LOC: MW.SDS 08:25
PROVIDERS: ATTEND Surgery
DX: K21.00 Gastro-esophageal reflux disease with esophagitis, without bleeding (principal); K60.2 Anal fissure, unspecified; K31.7 Polyp of stomach and duodenum; F41.9 Anxiety disorder, unspecified; Z87.891 Personal history of nicotine dependence; Z79.899 Other long term (current) drug therapy; Z88.2 Allergy status to sulfonamides; Z88.8 Allergy status to other drugs, medicaments and biological substances
CPT/HCPCS: 43239; 45380; 81025; J1100; J2405; J2704; J3010; J3490; J7120; 00813